=== PATIENT | female | born 1990 | race African-American/Black ===

== ENCOUNTER 2017-12-08 09:58 | Emergency (ER) | payer MEDICAID ==
[~2017-12-08] VITALS: Ht 152.4 cm; Wt 84.0 kg
[~2017-12-08 09:58] MED LIST: PROT40TA PO
[2017-12-08 10:00] VITALS: BP 140/100; PULSE 74; RESP 16; TEMP 97.7; O2SAT 100
[2017-12-08 10:11] LABS: BILIRUBIN, URINE NEG (NEG); BLOOD, URINE NEG (NEG); GLUCOSE,URINE NEG (NEG); KETONE, URINE NEG (NEG); NITRITE,URINE NEG (NEG); URINE LEUKOCYTE ESTERASE NEG (NEG)
[2017-12-08 10:15] LABS: URINE COLOR STRAW (YELLW/STRAW)
[2017-12-08] MEDS ORDERED: MECLIZINE HCL 25 MG TAB PO ONE (10:15)
[2017-12-08] MEDS ORDERED: ONDANSETRON HCL 4 MG/2 ML VIAL IV PUSH ONE (10:15)
[2017-12-08] MEDS ORDERED: SODIUM CHLOR 0.9% 1000 ML INJ 1,000 ML IV ONE (10:15)
--- NOTE | 2017-12-08 10:21 | PD ---
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 She says the symptoms started last night. She is about 2 weeks late for her.. She has taken several home tests have been negative. She is not having any fever or chills. She is not having pain in the right PFSH Past Medical History Hypertension: Yes (takes no meds) Ulcer: Yes Tetanus Vaccination: > 5 Years Influenza Vaccination: No ?: Unknown LMP: 10/25/17 : 6 Para: 3 : 3 Past Surgical History Surgical History: No Previous Surgery Section: No Social History Alcohol Use: Yes (occas. wine) Tobacco Use: No Substance Use: No Allergies-Medications (Allergen,Severity, Reaction): Coded Allergies: No Known Allergies (Unverified Adverse Reaction, Unknown, 12/08/17) Reported Meds & Prescriptions Reported Meds & Active Scripts Active No Active Prescriptions or Reported Medications Review of Systems General / Constitutional: No: Fever, Chills Eyes: No: Diploplia, Blurred Vision HENT: Positive: Lightheadedness, No: Headaches, Vertigo, Earache Cardiovascular: No: Chest Pain or Discomfort, Palpitations Respiratory: No: Cough, Shortness of Breath Gastrointestinal: Positive: Nausea Genitourinary: No: Urgency, Frequency Musculoskeletal: No: Myalgias, Arthralgias Skin: No Rash, No Itching Neurologic: No: Weakness Hematologic/Lymphatic: No: Easy Bruising Physical Exam Narrative GENERAL: Developed female SKIN: Focused skin assessment warm/dry. HEAD: Atraumatic. Normocephalic. EYES: Pupils equal and round. No scleral icterus. No injection or drainage. ENT: No nasal bleeding or discharge. Mucous membranes pink and moist. There are bilateral cerumen impactions NECK: Trachea midline. No JVD. CARDIOVASCULAR: Regular rate and rhythm. No murmur appreciated. RESPIRATORY: No accessory muscle use. Clear to auscultation. Breath sounds equal bilaterally. GASTROINTESTINAL: Abdomen soft, non-tender, nondistended. Hepatic and splenic margins not palpable. MUSCULOSKELETAL: No obvious deformities. No clubbing. No cyanosis. No edema. NEUROLOGICAL: Awake and alert. No obvious cranial nerve deficits. Motor grossly within normal limits. Normal speech. PSYCHIATRIC: Appropriate mood and affect; insight and judgment normal. Data Data Last Documented VS Vital Signs Date Time Temp Pulse Resp B/P (MAP) Pulse Ox O2 Delivery O2 Flow Rate FiO2 12/08/17 10:11 16 12/08/17 10:00 97.7 74 140/100 (113) 100 Orders Orders Urinalysis - C+S If Indicated (12/08/17 10:03) Ed Urine Pregnancytest Poc (12/08/17 10:03) Complete Blood Count With Diff (12/08/17 10:14) Comprehensive Metabolic Panel (12/08/17 10:14) Beta Hcg (Quant/Titer) (12/08/17 10:14) Sodium Chlor 0.9% 1000 Ml Inj (Ns 1000 M (12/08/17 10:15) Ondansetron Inj (Zofran Inj) (12/08/17 10:15) Meclizine (Antivert) (12/08/17 10:15) Labs Laboratory Tests Test 12/08/17 10:03 12/08/17 10:25 Urine Collection Type CLEAN CATCH Urine Color STRAW Urine Turbidity CLEAR Urine pH 6.0 Urine Specific [place] 1.010 Urine Protein NEG mg/dL Urine Glucose (UA) NEG mg/dL Urine Ketones NEG mg/dL Urine Occult Blood NEG Urine Nitrite NEG Urine Bilirubin NEG Urine Urobilinogen 0.2 MG/DL Urine Leukocyte Esterase NEG Urine WBC 0-2 /hpf Urine Squamous Epithelial Cells 6-8 /hpf Microscopic Urinalysis Comment CULT NOT INDICATED White Blood Count 5.5 TH/MM3 Red Blood Count 4.47 MIL/MM3 Hemoglobin 13.1 GM/DL Hematocrit 39.0 % Mean Corpuscular Volume 87.3 FL Mean Corpuscular Hemoglobin 29.4 PG Mean Corpuscular Hemoglobin Concent 33.6 % Red Cell Distribution Width 12.6 % Platelet Count 300 TH/MM3 Mean Platelet Volume 8.7 FL Neutrophils (%) (Auto) 50.1 % Lymphocytes (%) (Auto) 32.3 % Monocytes (%) (Auto) 9.8 % Eosinophils (%) (Auto) 5.2 % Basophils (%) (Auto) 2.6 % Neutrophils # (Auto) 2.8 TH/MM3 Lymphocytes # (Auto) 1.8 TH/MM3 Monocytes # (Auto) 0.5 TH/MM3 Eosinophils # (Auto) 0.3 TH/MM3 Basophils # (Auto) 0.1 TH/MM3 CBC Comment DIFF FINAL Differential Comment Blood Urea Nitrogen 5 MG/DL Creatinine 0.85 MG/DL Random Glucose 93 MG/DL Total Protein 7.2 GM/DL Albumin 3.5 GM/DL Calcium Level 8.5 MG/DL Alkaline Phosphatase 52 U/L Aspartate Amino Transf (AST/SGOT) 41 U/L Alanine Aminotransferase (ALT/SGPT) 42 U/L Total Bilirubin 0.2 MG/DL Sodium Level 139 MEQ/L Potassium Level 3.5 MEQ/L Chloride Level 105 MEQ/L Carbon Dioxide Level 26.5 MEQ/L Anion Gap 8 MEQ/L Estimat Glomerular Filtration Rate 96 ML/MIN Human Chorionic Gonadotropin, Quant LESS THAN 1 MIU/ML MDM Medical Decision Making Medical Screen Exam Complete: Yes Emergency Medical Condition: Yes Medical Record Reviewed: Yes Differential Diagnosis Differential includes vertigo, lightheadedness, Narrative Course Blood test for is negative. Although lab work is unremarkable. Impression is vertigo I will prescribe Antivert and Zofran Diagnosis Primary Impression: Vertigo Scripts Ondansetron Odt (Zofran Odt) 4 Mg Tab 4 MG SL Q8HR Y for Nausea/Vomiting, #10 TAB 0 Refills Prov: David Robles MD 12/08/17 Meclizine HCl (Meclizine 25) 25 Mg Tab 1 TAB PO Q6HR for Vertigo, #20 Prov: David Robles MD 12/08/17 Disposition: 01 DISCHARGE HOME Condition: Stable David Robles MD Dec 08, 2017 10:21
[2017-12-08 10:31] LABS: AUTOMATED NEUTROPHIL # 2.8 TH/MM3 (1.8-7.7); BASOPHIL # 0.1 TH/MM3 (0-0.2); BASOPHIL % 2.6 % (0.0-2.0); EOSINOPHIL # 0.3 TH/MM3 (0-0.4); EOSINOPHIL % 5.2 % (0.0-4.0); HEMOGLOBIN 13.1 GM/DL (11.6-15.3); LYMPH % 32.3 % (9.0-44.0); LYMPHOCYTE # 1.8 TH/MM3 (1.0-4.8); MEAN CELL VOLUME 87.3 FL (80.0-100.0); MEAN CORPUSCULAR HEMOGLOBIN 29.4 PG (27.0-34.0); MEAN CORPUSCULAR HGB CONC 33.6 % (32.0-36.0); MEAN PLATELET VOLUME 8.7 FL (7.0-11.0); MONO % 9.8 % (0.0-8.0); MONOCYTE # 0.5 TH/MM3 (0-0.9); NEUT % 50.1 % (16.0-70.0); PLATELET COUNT 300 TH/MM3 (150-450); RED BLOOD COUNT 4.47 MIL/MM3 (4.00-5.30); RED CELL DISTRIBUTION WIDTH 12.6 % (11.6-17.2); WHITE BLOOD COUNT 5.5 TH/MM3 (4.0-11.0)
[2017-12-08 10:35] LABS: WBC, URINE 0-2 /hpf (0-5)
[2017-12-08 10:43] LABS: CHLORIDE 105 MEQ/L (98-107); SODIUM (NA) 139 MEQ/L (136-145)
[2017-12-08 10:46] LABS: CALCIUM 8.5 MG/DL (8.5-10.1)
[2017-12-08 10:47] LABS: ALBUMIN 3.5 GM/DL (3.4-5.0); BICARBONATE 26.5 MEQ/L (21.0-32.0); BLOOD UREA NITROGEN 5 MG/DL (7-18); GLUCOSE,RANDOM 93 MG/DL (74-106)
[2017-12-08 10:49] LABS: ALT (GPT) 42 U/L (10-53)
[2017-12-08 10:50] LABS: AST (GOT) 41 U/L (15-37); CREATININE 0.85 MG/DL (0.50-1.00); GLOMERULAR FILTRATION RATE 96 ML/MIN (>89)
[2017-12-08 10:51] LABS: TOTAL BILIRUBIN ADULT 0.2 MG/DL (0.2-1.0); TOTAL PROTEIN 7.2 GM/DL (6.4-8.2)
[2017-12-08 10:53] LABS: ALKALINE PHOSPHATASE 52 U/L (45-117)
[2017-12-08] MEDS ORDERED: ZOFR4TAB3 SL (11:11)
[2017-12-08] MEDS ORDERED: MECL1TAB42 PO (11:11)
[2017-12-08 11:29] VITALS: BP 144/106
== END 2017-12-08 12:23 | disposition home or self-care (01) ==
LOC: PHED 09:58
DX: R42 Dizziness and giddiness (principal); R11.0 Nausea; I10 Essential (primary) hypertension; Z32.02 Encounter for pregnancy test, result negative
CPT/HCPCS: 80053; 81001; 84702; 84703; 85025; 96361; 96374; 99284; J2405; J7030